=== PATIENT | female | born 1945 | race African-American/Black ===

== ENCOUNTER → 2017-02-04 | Outpatient (CLI) | payer BC, MEDICARE ==
--- NOTE | 2017-02-04 17:08 | RADIOLOGY REPORT (SQ) ---
EXAM DESCRIPTION: SHOULDER RIGHT 2 OR MORE VIEWS COMPLETED DATE/TIME: 02/04/2017 1:23 pm REASON FOR STUDY: PRIMARY OSTEOARTHRITIS, RIGHT SHOULDER M19.011 PRIMARY OSTEOARTHRITIS, RIGHT SHOU LDER COMPARISON: None. NUMBER OF VIEWS: Three views. TECHNIQUE: Internal rotation, external rotation, and Y view images acquired of the right shoulder. LIMITATIONS: None. FINDINGS: MINERALIZATION: Normal. BONES: No acute fracture or dislocation. No worrisome bone lesions. JOINTS: Mild bony spurring at the acromioclavicular joint, and along the undersurface of the acromion . No glenohumeral malalignment. VISUALIZED LUNGS AND RIBS: No pneumothorax. No rib fracture. SOFT TISSUES: No radiopaque foreign body. OTHER: No other significant finding. IMPRESSION: Osteoarthritis at the acromioclavicular joint. TECHNICAL DOCUMENTATION: JOB ID: [id number] [employer]- All Rights Reserved
== END ==
LOC: OD 13:10
PROVIDERS: ATTEND Internal Medicine
DX: M19.011 Primary osteoarthritis, right shoulder (principal)

== ENCOUNTER → 2017-03-30 | Outpatient (CLI) | payer BC, MEDICARE ==
--- NOTE | 2017-03-30 11:32 | RADIOLOGY REPORT (SQ) ---
EXAM DESCRIPTION: MRI RT UPPER JOINT WITHOUT COMPLETED DATE/TIME: 03/30/2017 11:04 am REASON FOR STUDY: PAIN IN RIGHT SHOULDER (M25.511) M25.511 PAIN IN RIGHT SHOULDER COMPARISON: None. TECHNIQUE: Right shoulder images acquired and stored on PACS. Multiplanar imaging to include fat sen sitive sequences such as T1, water sensitive sequences such as FST2/STIR, cartilage sensitive sequenc es such as FSPD/gradient-echo sequences. LIMITATIONS: None. FINDINGS: BONE MARROW AND CORTEX: No worrisome bone lesions or marrow replacement. No occult fractur es. JOINT OR BURSAL EFFUSION: No significant joint or bursal fluid. No suggestion of loose bodies. GLENO-HUMERAL ARTICULATION: Normal articulation. No subluxation. No cystic change. No osteophytes or cartilage loss. ACROMION AND AC JOINT: Type 2 acromion. AC joint arthropathy. ROTATOR CUFF AND INTERVAL: Tendinopathy of the posterior supraspinatus and superior infraspinatus. N o discrete partial or full-thickness tear. Subscapularis is intact. No muscle atrophy. No rotator interval tear. No rotator interval thickening to suggest adhesive capsulitis. LABRUM AND BICEPS LABRAL COMPLEX: Intact. No labral tear. Intra-articular long-head biceps tendon n ormal. Distal biceps in normal location in bicipital groove. REMAINDER OF LABRUM AND IGHL : No gross tear or paralabral cyst formation. Labral evaluation is less than optimal without joint distention. No thickening of IGHL to suggest adhesive capsulitis. PERIARTICULAR AND ADJACENT SOFT TISSUES: No masses or abnormal nodes. OTHER: No other significant finding. IMPRESSION: Tendinopathy of the supraspinatus and superior infraspinatus. No partial or full-thickn ess tear. TECHNICAL DOCUMENTATION: JOB ID: [id number] [employer]- All Rights Reserved
== END ==
LOC: RAD 09:57
PROVIDERS: ATTEND Orthopaedic Surgery Sports Medicine
DX: M25.511 Pain in right shoulder (principal)

== ENCOUNTER → 2017-07-06 | Outpatient (CLI) | payer BC, MEDICARE ==
--- NOTE | 2017-07-06 14:53 | RADIOLOGY REPORT (SQ) ---
EXAM DESCRIPTION: U/S THYROID/SFT TISS HD NECK COMPLETED DATE/TIME: 07/06/2017 1:47 pm REASON FOR STUDY: PAIN IN THROAT R07.0 PAIN IN THROAT COMPARISON: None. TECHNIQUE: Dynamic and static levy-scale images acquired of the thyroid gland. Selected additional c olor/power Doppler images recorded. All images stored to PACS. LIMITATIONS: None. FINDINGS: RIGHT LOBE: Normal size, 4.6 cm in length. Homogeneous echotexture. 1.3 x 0.9 x 0 point cm upper pole nodule with color flow. LEFT LOBE: Normal size, 3.7 cm in length. Homogeneous echotexture. 6 x 3 mm nodule left lower pole thyroid. ISTHMUS: Normal size. Homogeneous echotexture. No cystic or solid masses. OTHER: No other significant finding. IMPRESSION: Overall normal size thyroid. Small nodules in the right and left thyroid. 1 year follo w-up ultrasound recommended TECHNICAL DOCUMENTATION: JOB ID: [id number] [email or web address]- All Rights Reserved
== END ==
LOC: RAD 11:59
PROVIDERS: ATTEND Internal Medicine
DX: R07.0 Pain in throat (principal); E04.1 Nontoxic single thyroid nodule
CPT/HCPCS: 76536

== ENCOUNTER 2017-10-15 05:26 | Day surgery (SDC) | payer BC, MEDICARE ==
[2017-10-08 12:10] LABS: HEMATOCRIT 41.5 % (36.0-47.0); HEMOGLOBIN 13.8 g/dL (12.0-15.5); MEAN CORPUSCULAR HEMOGLOBIN 32.4 pg (27.0-33.4); MEAN CORPUSCULAR HGB CONC 33.2 g/dL (32.0-36.0); MEAN CORPUSCULAR VOLUME 98 fl (80-97); PLATELET COUNT 236 10^3/uL (150-450); RED BLOOD COUNT 4.25 10^6/uL (3.72-5.28); RED CELL DISTRIBUTION WIDTH 13.2 % (11.5-14.0); WHITE BLOOD COUNT 4.1 10^3/uL (4.0-10.5)
[2017-10-08 12:31] LABS: ANION GAP 10 (5-19); BLOOD UREA NITROGEN 7 mg/dL (7-20); CALCIUM 9.7 mg/dL (8.4-10.2); CARBON DIOXIDE 36 mmol/L (22-30); CHLORIDE 97 mmol/L (98-107); GLUCOSE 103 mg/dL (75-110); POTASSIUM 4.3 mmol/L (3.6-5.0)
--- NOTE | 2017-10-08 13:37 | EKG REPORT ---
SEVERITY:- BORDERLINE ECG - SINUS RHYTHM BORDERLINE T WAVE ABNORMALITIES : Confirmed by: Joshua Crane MD 08-Oct-2017 13:37:02
[~2017-10-15 05:26] MED LIST: CEFAZOLIN 1 GM/D5W RTU 1 GM/50 ML RTUPB IV PRN; DEXTROSE 5%-LACTATED RINGERS 1,000 ML IV PRN; LACTATED RINGERS 1000 ML IV PRN; LIDOCAINE 0.5% INJ-PF (5 MG/ML) 50 ML SDV SUBCUT PRN
[2017-10-15] MEDS ORDERED: LIDOCAINE 1%/EPINEPHRINE INJ 20 ML VIAL ONE (06:43)
[2017-10-15] MEDS ORDERED: FENTANYL CITRATE INJ/PF 100 MCG/2 ML AMPUL ONE (06:56)
[2017-10-15] MEDS ORDERED: PROPOFOL INJ 200 MG/20 ML VIAL IV ONE (06:57)
[2017-10-15] MEDS ORDERED: MIDAZOLAM 2 MG/2 ML INJ ONE (06:57)
[2017-10-15] MEDS ORDERED: OXYCODONE-ACETAMINOPHEN 5-325 MG TABLET PO PRN ×2 (07:57)
[2017-10-15] MEDS ORDERED: PROMETHAZINE HCL INJ 25 MG/1 ML VIAL IV PRN ×2 (07:57)
[2017-10-15] MEDS ORDERED: DIPHENHYDRAMINE HCL 50 MG/ML VIAL IV PRN (07:57)
[2017-10-15] MEDS ORDERED: MEPERIDINE HCL/PF INJ 25 MG/1 ML DISP.SYRIN IV PRN (07:57)
[2017-10-15] MEDS ORDERED: FENTANYL CITRATE INJ/PF 100 MCG/2 ML AMPUL IV PRN ×3 (07:57)
--- NOTE | 2017-10-15 08:23 | Discharge Summary ---
Discharge Summary (SDC) - Discharge Final Diagnosis: Lipoma right upper back Date of Surgery: 10/15/17 Discharge Date: 10/15/17 Condition: Good Treatment or Instructions: Patient to the restrain from heavy lifting; remove bulky dressing in 48 hours then may shower; prescription for Toradol provided; return to clinic [facility] to see THOM Felix in 1-2 weeks. Resume preoperative medications diet Prescriptions: Ketorolac Tromethamine [Toradol 10 mg Tablet] 10 mg PO Q6HP PRN #20 tablet PRN Reason: Referrals: MARLINE ROJAS MD [Primary Care Provider] - Discharge Diet: As Tolerated Discharge Activity: Activity As Tolerated Home Care Assistance: None Needed Report the Following to Your Physician Immediately: Shortness of Breath, Increase in Pain, Fever over 101 Degrees
--- NOTE | 2017-10-15 08:27 | Operative Report ---
Operative Report DATE OF SURGERY: 10/15/17 PREOPERATIVE DIAGNOSIS: Right upper back lipoma POSTOPERATIVE DIAGNOSIS: Same OPERATION: Complete excision of upper back lipoma with primary closure of operative wound SURGEON: PETRA DANG ANESTHESIA: LMAC TISSUE REMOVED OR ALTERED: lipoma to pathology COMPLICATIONS: none ESTIMATED BLOOD LOSS: scant INTRAOPERATIVE FINDINGS: see below PROCEDURE: Patient was taken the preop holding area with a right upper back lipoma was marked by Dr. Dang to the main operating room where LMAC anesthesia was induced. She was placed in the prone position with head and neck appropriately supported. The right upper back was prepped and draped in sterile fashion with Betadine. Surgical plan surgical timeout were conducted. Skin was anesthetized 1% plain lidocaine. Approximately 4-1/2-5 cm incision was made with the superficial fascia overlying the lipoma was divided, and then using a combination of blunt, electrocautery, and Kailyn clamp dissection the lipoma was excised from the deep subcutaneous space in its entirety. Was no dominant vascular pedicle. Specimen sent to pathology for permanent analysis. Careful inspection of the cavity revealed no bleeding. We Inspected the wound cavity several times, and closed wound primarily with 2-0 and 3-0 Vicryl benzoin Steri-Strips bulky dressing with elastic tape. Patient tolerated procedure well. She is taken recovery in stable condition.
[2017-10-15 10:07] VITALS: BP 129/78
== END 2017-10-15 09:50 | disposition home or self-care (01) ==
LOC: OROUT 05:26
PROVIDERS: ATTEND Surgery
PROC: 0JB70ZZ Excision of Back Subcutaneous Tissue and Fascia, Open Approach (ICD-10-PCS; principal; 2017-10-15 07:30)
DX: D17.1 Benign lipomatous neoplasm of skin and subcutaneous tissue of trunk (principal); M19.90 Unspecified osteoarthritis, unspecified site; E78.00 Pure hypercholesterolemia, unspecified; K21.9 Gastro-esophageal reflux disease without esophagitis; I10 Essential (primary) hypertension; Z88.6 Allergy status to analgesic agent; Z87.891 Personal history of nicotine dependence; Z79.899 Other long term (current) drug therapy
CPT/HCPCS: 93005; 36415 ×2; 84132; 85027; 80048; 88304 ×2; 93010; 11406; J2250; J0690; J3490; J2704; 300; J3010

== ENCOUNTER → 2017-11-18 | Outpatient (CLI) | payer BC, MEDICARE ==
--- NOTE | 2017-11-19 08:11 | XCELERA REPORT ---
[address] [address] Lower Extremity Arterial Evaluation Name: RAJIV BURDEN Age: 72 yrs Gender: Female : 1945 Patient Status: Outpatient Patient Location: Study Date: 11/18/2017 02:49 PM Procedure: A color flow and duplex scan of the lower extremity arteries was performed bilaterally with velocity and waveform analysis. Ankle brachial indicies performed. Reason For Study: PVD Ordering Physician: NORMA ODOM Performed By: Lila Reyes Measurements and Calculations Right Left AMUSEMENT EQUIPMENT OPERATOR PSV 108.9 113.8 cm/sec Prox PFA PSV -64.0 -164.1 cm/sec Prox SFA PSV -101.5 -101.8 cm/sec Mid SFA PSV -122.2 -111.9 cm/sec Dist SFA PSV -119.4 -88.6 cm/sec Prox Pop A PSV 77.7 55.2 cm/sec Dist SNEHA PSV 83.8 73.2 cm/sec Dist SCALP TREATMENT SPECIALIST PSV 97.3 90.4 cm/sec Freddie Pedis PSV 89.5 85.0 cm/sec Right Side Arterial Evaluation Normal velocity and triphasic waveforms noted from the Common Femoral artery to the infrageniculate vessels. 0 % stenosis at the Femoral artery. Ankle Brachial index is 1.1. Left Side Arterial Evaluation Normal velocity and triphasic waveforms noted from the Common Femoral artery to the infrageniculate vessels. 0 % stenosis at the Femoral artery. Ankle Brachial index is 1.2. Interpretation Summary No hemodynamically significant lesions in the bilateral lower extremities, on duplex imaging, at rest. : NORMA ODOM > Amrik Flores
== END ==
LOC: SP 14:05
PROVIDERS: ATTEND Podiatrist Foot & Ankle Surgery
DX: I73.9 Peripheral vascular disease, unspecified (principal)
CPT/HCPCS: 93925

== ENCOUNTER → 2018-06-03 | Outpatient (CLI) | payer BC, MEDICARE ==
--- NOTE | 2018-06-07 09:12 | WOMENS IMAGING REPORT ---
EXAM DESCRIPTION: BILAT SCREENING MAMMO W/CAD COMPLETED DATE/TIME: 06/03/2018 8:03 am REASON FOR STUDY: BILATERAL SCREENING MAMMO/ Z12.31 Z12.31 ENCNTR SCREEN MAMMOGRAM FOR MALIGNANT NE OPLASM OF BREANNA COMPARISON: 06/03/2017 TECHNIQUE: Standard craniocaudal and mediolateral oblique views of each breast recorded using digita l acquisition. LIMITATIONS: None. FINDINGS: Findings present which are benign by mammographic criteria. No suspicious masses, calcifi cations or architectural distortion. Pertinent benign findings: Stable benign bilateral breast parenchymal and skin calcifications Read with the assistance of CAD. .[facility] - R2 Cenova Version 1.3 .[facility] - R2 Cenova Version 1.3 .[facility] - R2 Cenova Version 2.4 .[facility] - R2 Cenova Version 2.4 .[facility] - R2 [employer] Intern Version 9.2 Benign mammographic findings may include one or more of the following: Smooth masses, popcorn/rim/co arse calcifications, asymmetries, post-procedure changes, and lesions with long-standing stability. IMPRESSION: BENIGN MAMMOGRAPHIC FINDINGS. BIRADS 2 BREAST DENSITY: b. There are scattered areas of fibroglandular density. BIRAD: 2 BENIGN FINDING(S) RECOMMENDATION: ROUTINE SCREENING Please continue yearly bilateral screening mammography/tomosynthesis in May 2019 COMMENT: The patient has been notified of the results by letter per [place] requirements. Additional no tification policies are in place for contacting patient with suspicious or incomplete findings. Quality ID #[id number]: The [employer] recommends an annual screening mammogram for women aged 40 years or over. This facility utilizes a reminder system to ensure that all patients receive reminder letters, and/or direct phone calls for appointments. This includes reminders for routine scr eening mammograms, diagnostic mammograms, or other Breast Imaging Interventions when appropriate. Th is patient will be placed in the appropriate reminder system. The [employer] ([employer]) has developed recommendations for screening MRI of the breast s in certain patient populations, to be used in conjunction with mammography. Breast MRI surveillanc e may be appropriate for women with more than 20% lifetime risk of developing breast cancer as deter mined by genetic testing, significant family history of the disease, or history of mantle radiation f or Hodgkins Disease. ACR Practice Guidelines 2008. TECHNICAL DOCUMENTATION: FINDING NUMBER: (1) ASSESSMENT: (1) JOB ID: [id number] [employer] [facility] [employer]- All Rights Reserved Reading location - IP/workstation name: [email or web address]
== END ==
LOC: WI 06:50
PROVIDERS: ATTEND Internal Medicine
DX: Z12.31 Encounter for screening mammogram for malignant neoplasm of breast (principal)
CPT/HCPCS: 77067